=== PATIENT | female | born 1970 | race African-American/Black ===

== ENCOUNTER 2019-08-13 20:17 | Emergency (ER) | payer OTHER ==
[~2019-08-13] VITALS: Ht 157.5 cm; Wt 54.4 kg
--- NOTE | 2019-08-13 21:00 | NUR ---
"TOOK 3 DIET PILLS TODAY ON EMPTY STOMACH @3PM; DIZZY, NAUSEATED, WEAK SINCE" PT AAOX4, -SOB, NMAD NOTED, VSS, PENDING MD PETERSEN
[2019-08-13] MEDS ORDERED: ONDANSETRON 4 MG TAB.RAPDIS ONE ×2 (21:29→23:05)
[2019-08-13] MEDS ORDERED: ONDANSETRON 4 MG TAB.RAPDIS SL ONE ×2 (21:30→23:30)
[2019-08-13] MEDS ORDERED: IV NS 0.9% 500 ML BAG IV ONE (22:00)
[2019-08-13 22:38] LABS: BASOPHILS % (AUTO) 0.2 % (0.0-2.0); HEMATOCRIT 36 % (33-45); HEMOGLOBIN 11.8 g/dL (11.5-14.8); LYMPHOCYTES # (AUTO) 0.8 /CMM (0.8-4.8); LYMPHOCYTES % (AUTO) 11.3 % (20.0-44.0); MEAN CORPUSCULAR HGB CONC 33 g/dl (31.0-36.0); MEAN CORPUSCULAR VOLUME 80 fL (82-100); MONOCYTES # (AUTO) 0.3 /CMM (0.1-1.30); MONOCYTES % (AUTO) 3.9 % (2.0-12.0); NEUTROPHILS # (AUTO) 6.3 /CMM (1.8-8.9); NEUTROPHILS % (AUTO) 84.6 % (43.0-81.0); PLATELET COUNT (AUTO) 253 /CMM (150-450); RED BLOOD CELL COUNT(AUTO) 4.54 MIL/uL (4.0-5.2); WHITE BLOOD COUNT (AUTO) 7.4 K/uL (4.3-11.0)
[2019-08-13 22:45] LABS: CALCIUM, SERUM 8.5 mg/dL (8.5-10.1); CREATININE 0.9 mg/dL (0.6-1.3); POTASSIUM 3.8 mmol/L (3.5-5.1)
[2019-08-13 22:54] VITALS: BP 110/65
--- NOTE | 2019-08-13 23:07 | NUR ---
Patient discharged to home in stable condition. Written and verbal after care instructions given. Patient verbalizes understanding of instruction. IV removed. Catheter intact and site benign. Pressure and 4x4 applied to site. No bleeding noted.
== END 2019-08-13 23:08 | disposition home or self-care (01) ==
LOC: ER 20:21
DX: T50.991A Poisoning by other drugs, medicaments and biological substances, accidental (unintentional), initial encounter (principal); Y92.89 Other specified places as the place of occurrence of the external cause
CPT/HCPCS: 36415; 80048; 85025; 93005; 99284; J7040; Q0162 ×2

== ENCOUNTER 2024-06-20 10:27 | Emergency (ER) | payer OTHER ==
[~2024-06-20] VITALS: Ht 157.5 cm; Wt 59.0 kg
[2024-06-20] MEDS ORDERED: KETOROLAC TROMETHAMINE INJ 30 MG/ML VIAL ONE (11:06)
[2024-06-20] MEDS ORDERED: CYCLOBENZAPRINE 10 MG TABLET ONE (11:06)
[2024-06-20] MEDS: KETOROLAC TROMETHAMINE INJ 30 MG/ML VIAL IM ONE (11:19)
[2024-06-20] MEDS: CYCLOBENZAPRINE 10 MG TABLET PO ONE (11:19)
[2024-06-20] MEDS ORDERED: CYCL5TAB PO (11:21)
[2024-06-20 11:40] VITALS: BP 116/79; TEMP 98.6; O2SAT 100
== END 2024-06-20 11:40 | disposition home or self-care (01) ==
LOC: ER 10:35
DX: M54.50 Low back pain, unspecified (principal)
CPT/HCPCS: 99283; 96372; J1885